=== PATIENT | female | born 1945 | race Caucasian/White ===

== ENCOUNTER → 2017-02-19 | Day surgery (SDC) | payer MEDICARE, BC ==
[2017-02-18 12:26] LABS: BASOPHILS # (AUTO) 0.1 (0.0-0.1); BASOPHILS % 0.9 % (0.0-1.0); EOSINOPHILS # (AUTO) 0.3 (0.0-0.4); EOSINOPHILS % 3.3 % (0.0-6.0); HEMOGLOBIN 12.5 g/dL (12.0-16.0); LYMPHOCYTES # (AUTO) 2.8 (1.0-3.2); LYMPHOCYTES % 34.7 % (18.0-39.1); MEAN CORPUSCULAR HEMOGLOBIN 29.2 pg (28-32); MEAN CORPUSCULAR HGB CONC 32.9 g/dL (31-35); MEAN CORPUSCULAR VOLUME 88.8 fL (81-99); MONOCYTES # (AUTO) 0.9 (0.2-0.8); MONOCYTES % 11.5 % (4.4-11.3); NEUTROPHILS % 49.1 % (38.7-80.0); PLATELET COUNT 315 x10e3/uL (140-360); RED BLOOD COUNT 4.28 x10e6/uL (3.6-5.1); RED CELL DISTRIBUTION WIDTH 15.4 % (11.7-14.4)
[~2017-02-19] MED LIST: ENALAPRIL PO; FENTANYL CITRATE/PF 100MCG/2 ML INJ ONE; METOPROLOL SUCC25 MG PO; METOPROLOL SUCC50 MG PO; MIDAZOLAM HCL 2 MG/2 ML VIAL ONE; PANTOPRAZOLE SO40 MG PO; PROPOFOL IV EMULSION 10 MG/ML 50 ML VIAL ONE; PROTONIX PO; SIMVASTATIN PO; SIMVASTATIN20 MG PO; TRIAMTERENE-HC1 EAC2 PO; VASOTEC10 MG PO
--- NOTE | 2017-02-19 11:03 | Operative Report ---
DATE OF PROCEDURE: February 19, 2017 REFERRING PHYSICIAN: Dr. Christine Dang PROCEDURE PERFORMED: Esophagogastroduodenoscopy with biopsies. INDICATIONS FOR EGD: Recurrent nausea, vomiting and bloating. MEDICATION: Patient was done under MAC. Please see anesthesiologist's note. PROCEDURE: With the patient in the left lateral decubitus position, the flexible fiberoptic Olympus gastroscope was introduced into the esophagus under direct visualization without any difficulty. There were some erosions noted in the distal esophagus. There was no active bleeding. The scope was then advanced with ease into the stomach traversing a moderate size hiatal hernia. Mucosa overlying the antrum and the body revealed some patchy erythema and mild to moderate edema. Biopsies were obtained and sent to stain for H. pylori. Gastric polyps, hyperplastic appearing, noted in the body and somewhat partially excised with the cold biopsy forceps. Pylorus appeared to be of normal contour and shape. It was intubated with ease. The scope was advanced all the way to the 2nd portion of the duodenum. The scope was then withdrawn slowly. Mucosa overlying the proximal 2nd portion and the duodenal bulb revealed some patchy areas of erythema. The scope was then withdrawn back into the stomach and retroflexed. The mucosa overlying the fundus appeared to be within normal limits. The previously described hiatal hernia was also noted in the retroflexed position. The scope was then straightened out. The stomach was decompressed. The scope was subsequently withdrawn. Patient tolerated the procedure well. IMPRESSION 1. Distal esophagitis, erosive. 2. Moderate size hiatal hernia. 3. Gastritis, biopsied. Biopsies sent to stain for Helicobacter pylori. 4. Gastric polyps, body, some partially excised with cold biopsy forceps. 5. Duodenitis, mild. PLAN: Follow up histology. Increase Protonix to 40 mg 1 p.o. a.c. b.i.d. Add Reglan 10 mg 1 p.o. a.c. t.i.d. and at bedtime. Job#: [id number] RI cc:CHRISTINE DANG MD
== END | disposition home or self-care (01) ==
LOC: OR 07:23
PROVIDERS: ATTEND Internal Medicine Gastroenterology
DX: K29.60 Other gastritis without bleeding (principal); K31.7 Polyp of stomach and duodenum; K29.80 Duodenitis without bleeding; K20.9 Esophagitis, unspecified; K44.9 Diaphragmatic hernia without obstruction or gangrene; I10 Essential (primary) hypertension; R00.1 Bradycardia, unspecified; Z01.810 Encounter for preprocedural cardiovascular examination; Z01.812 Encounter for preprocedural laboratory examination; Z68.33 Body mass index [BMI] 33.0-33.9, adult; Z80.0 Family history of malignant neoplasm of digestive organs
CPT/HCPCS: 36415; 43239; 85025; 88305; 88312; 93005; J2250

== ENCOUNTER → 2019-01-28 | Outpatient (CLI) | payer MEDICARE, BC ==
[~2019-01-28] MED LIST changes: -FENTANYL CITRATE/PF 100MCG/2 ML INJ ONE; +GADOBENATE DIMEGLUMINE 1 ML IV ONE; +GLYCOPYRROLATE1 MG PO; +LOSARTAN POTASS25 MG PO; +METFORMIN HCL500 MG PO; -MIDAZOLAM HCL 2 MG/2 ML VIAL ONE; -PROPOFOL IV EMULSION 10 MG/ML 50 ML VIAL ONE; +SODIUM CHLORIDE 0.9% 50ML 50 ML ONE
[2019-01-28 10:39] LABS: CREATININE, SERUM 1.02 mg/dL (0.57-1.11)
--- NOTE | 2019-01-29 14:54 | Diagnostic Imaging Report ---
TECHNIQUE: MRI of the abdomen WITHOUT and WITH intravenous contrast. INDICATION: 73-year-old woman with right liver lesion. COMPARISON: None. FINDINGS: LOWER THORAX: Unremarkable. LIVER: Decreased signal intensity of the liver on opposed phase imaging, consistent with hepatic steatosis. 0.7 cm and 0.4 cm cysts in segment II. BILIARY: Prior cholecystectomy. No biliary ductal dilatation or filling defect. SPLEEN: No splenomegaly. PANCREAS: No focal masses or ductal dilatation. ADRENALS: No adrenal nodules. KIDNEYS/URETERS: No hydronephrosis or solid mass lesions. Bilateral renal cysts measure up to 1 cm on the right and up to 1.1 x 1 cm on the left. PERITONEUM/RETROPERITONEUM: No free fluid. LYMPH NODES: No lymphadenopathy. VESSELS: Unremarkable. GI TRACT: No distention or wall thickening. Small hiatal hernia. BONES AND SOFT TISSUES: Degenerative changes of the visualized spine. Bilateral breast prostheses. IMPRESSION: Hepatic steatosis. Subcentimeter cysts in the left liver. Bilateral renal cysts. Signed by: Luara Nair MD on 01/29/2019 2:51 PM
== END ==
LOC: MRI 09:34
PROVIDERS: ATTEND Internal Medicine Gastroenterology
DX: K76.9 Liver disease, unspecified (principal)
CPT/HCPCS: 36415; 74183; 82565; 84520; A9577

== ENCOUNTER → 2020-04-21 | Outpatient (CLI) | payer MEDICARE, BC ==
[~2020-04-21] MED LIST changes: -GADOBENATE DIMEGLUMINE 1 ML IV ONE; -SODIUM CHLORIDE 0.9% 50ML 50 ML ONE
== END ==
LOC: DX 10:55
PROVIDERS: ATTEND Surgery
DX: Z01.812 Encounter for preprocedural laboratory examination (principal); Z20.822 Contact with and (suspected) exposure to COVID-19; K21.9 Gastro-esophageal reflux disease without esophagitis; K44.9 Diaphragmatic hernia without obstruction or gangrene
CPT/HCPCS: 74246; U0002

== ENCOUNTER → 2020-09-06 | Outpatient (CLI) | payer MEDICARE, BC ==
[~2020-09-06] MED LIST changes: +CEFDINIR300 MG PO; +ELLIPTA; +FLAGYL500 MG PO; +LEVOTHYROXINE50 MCG PO; +TRILOGY
== END ==
LOC: RAD 10:41
PROVIDERS: ATTEND Internal Medicine Gastroenterology
DX: K59.09 Other constipation (principal)
CPT/HCPCS: 74018

== ENCOUNTER 2020-09-08 12:17 | Inpatient (IN) | payer MEDICARE, BC ==
[2020-09-07 14:19] LABS: BASOPHILS # (AUTO) 0.1 (0.0-0.1); BASOPHILS % 0.6 % (0.0-1.0); EOSINOPHILS % 0.2 % (0.0-6.0); HEMATOCRIT 36.1 % (34.2-44.1); HEMOGLOBIN 11.4 g/dL (12.0-16.0); LYMPHOCYTES # (AUTO) 3.3 (1.0-3.2); LYMPHOCYTES % 23.1 % (18.0-39.1); MEAN CORPUSCULAR HEMOGLOBIN 27.9 pg (28-32); MEAN CORPUSCULAR HGB CONC 31.6 g/dL (31-35); MEAN CORPUSCULAR VOLUME 88.3 fL (81-99); MONOCYTES # (AUTO) 1.4 (0.2-0.8); MONOCYTES % 9.6 % (4.4-11.3); NEUTROPHILS # (AUTO) 9.3 (2.1-6.9); NEUTROPHILS % 65.9 % (38.7-80.0); PLATELET COUNT 526 x10e3/uL (140-360); RED BLOOD COUNT 4.09 x10e6/uL (3.6-5.1); RED CELL DISTRIBUTION WIDTH 15.8 % (11.7-14.4)
[~2020-09-08] VITALS: Ht 157.5 cm; Wt 87.1 kg
[~2020-09-08 12:17] MED LIST changes: -CEFDINIR300 MG PO; -FLAGYL500 MG PO
[2020-09-08] MEDS ORDERED: POVIDONE IODINE 0.05% 0.05 % ML PO ONE (12:54)
[2020-09-08] MEDS ORDERED: PROPOFOL IV EMULSION 10 MG/ML 20 ML VIAL ONE (12:54)
[2020-09-08] MEDS ORDERED: METRONIDAZOLE 500MG/NS 100ML 0 ML IV ONE (17:08)
[2020-09-08] MEDS ORDERED: DIATRIZOATE MEGL/DIATRIZOA SOD 30 ML BTL PO ONE (17:42)
[2020-09-08] MEDS ORDERED: ONDANSETRON HCL INJ 2MG/ML 2ML 2 MG/ML VIAL ONE (19:33)
[2020-09-08] MEDS ORDERED: SODIUM CHLORIDE 0.9% 50ML 50 ML ONE (19:36)
[2020-09-08] MEDS ORDERED: IOPAMIDOL 370 MG/ML 200 ML INFUS..BTL INJ ONE (19:37)
[2020-09-08 20:19] VITALS: BP 121/62
[2020-09-08] MEDS: LACTATED RINGER'S 1,000 ML INJ SCH (21:43)
[2020-09-08] MEDS: ERTAPENEM 1 GM in SODIUM CHLORIDE 0.9% 50ML 50 ML IV SCH (21:43)
[2020-09-08 22:34] VITALS: BP 121/62
[2020-09-08 23:51] VITALS: BP 129/56
[2020-09-09] VITALS (7 sets, daily range): BP systolic 113–163; BP diastolic 55–93
[2020-09-09] MEDS ORDERED: PIPERACILLIN/TAZOBACTAM 3.375 GM in SODIUM CHLORIDE 0.9% 50ML 50 ML IV SCH ×2
[2020-09-09] MEDS ORDERED: MEROPENEM 1 GM in SODIUM CHLORIDE 0.9% 100 ML IV STA (00:52)
[2020-09-09] MEDS ORDERED: MEROPENEM 1 GM in SODIUM CHLORIDE 0.9% 100 ML IV SCH (06:00)
[2020-09-09] MEDS: METRONIDAZOLE 500MG/NS 100ML 100 ML IV SCH ×3 (06:53→17:01)
[2020-09-09] MEDS: LACTATED RINGER'S 1,000 ML INJ SCH ×2 (06:53→17:01)
[2020-09-09] MEDS ORDERED: HYDRALAZINE HCL 20 MG/ML VIAL IV PRN (20:30)
[2020-09-09] MEDS: ERTAPENEM 1 GM in SODIUM CHLORIDE 0.9% 50ML 50 ML IV SCH (20:54)
[2020-09-09] MEDS: DEXTROSE 5%/0.45% SOD CHL 1,000 ML IV SCH (20:54)
[2020-09-10] VITALS (8 sets, daily range): BP systolic 130–151; BP diastolic 55–81
[2020-09-10] MEDS: METRONIDAZOLE 500MG/NS 100ML 100 ML IV SCH ×5 (00:06→17:46)
[2020-09-10] MEDS: DEXTROSE 5%/0.45% SOD CHL 1,000 ML IV SCH (05:18)
[2020-09-10 06:23] LABS: BASOPHILS # (AUTO) 0.1 (0.0-0.1); BASOPHILS % 0.8 % (0.0-1.0); EOSINOPHILS # (AUTO) 0.1 (0.0-0.4); EOSINOPHILS % 1.1 % (0.0-6.0); HEMATOCRIT 31.3 % (34.2-44.1); HEMOGLOBIN 10.1 g/dL (12.0-16.0); LYMPHOCYTES # (AUTO) 1.7 (1.0-3.2); LYMPHOCYTES % 26.8 % (18.0-39.1); MEAN CORPUSCULAR HEMOGLOBIN 28.2 pg (28-32); MEAN CORPUSCULAR HGB CONC 32.3 g/dL (31-35); MEAN CORPUSCULAR VOLUME 87.4 fL (81-99); MONOCYTES # (AUTO) 0.7 (0.2-0.8); MONOCYTES % 10.6 % (4.4-11.3); NEUTROPHILS # (AUTO) 3.9 (2.1-6.9); NEUTROPHILS % 60.1 % (38.7-80.0); PLATELET COUNT 512 x10e3/uL (140-360); RED BLOOD COUNT 3.58 x10e6/uL (3.6-5.1); RED CELL DISTRIBUTION WIDTH 15.4 % (11.7-14.4)
[2020-09-10 06:47] LABS: ALBUMIN 2.6 g/dL (3.5-5.0); ALBUMIN/GLOBULIN RATIO 0.7 (0.8-2.0); ANION GAP 16.4 mmol/L (8-16); CALCIUM 8.2 mg/dL (8.4-10.2); CREATININE, SERUM 0.72 mg/dL (0.57-1.11); POTASSIUM 3.4 mmol/L (3.5-5.1)
[2020-09-10] MEDS: LEVOTHYROXINE SODIUM 50 MCG TAB PO SCH (11:26)
[2020-09-10] MEDS ORDERED: DEXTROSE 50% SYRINGE 50 ML IV PRN (16:15)
[2020-09-10] MEDS: INSULIN REGULAR, HUMAN 100 UNIT/1 ML SQ SCH ×2 (16:30→20:24)
[2020-09-10] MEDS: SODIUM CHLORIDE 0.9% 1000ML 1,000 ML IV SCH (17:15)
[2020-09-10] MEDS ORDERED: SODIUM CHLORIDE 0.9% 1000ML 1,000 ML ONE (17:18)
[2020-09-10] MEDS: ERTAPENEM 1 GM in SODIUM CHLORIDE 0.9% 50ML 50 ML IV SCH (20:42)
[2020-09-10 23:36] LABS: % IRON SATURATION 7 % (15-50); IRON 19 ug/dL (50-170); TOTAL IRON BINDING CAPACITY 265 ug/dL (261-478); TRANSFERRIN 189 mg/dL (180-382)
[2020-09-11] VITALS (7 sets, daily range): BP systolic 139–181; BP diastolic 69–87
[2020-09-11] MEDS: METRONIDAZOLE 500MG/NS 100ML 100 ML IV SCH ×4 (00:15→19:43)
[2020-09-11 05:18] LABS: ANION GAP 15.3 mmol/L (8-16); CALCIUM 8.2 mg/dL (8.4-10.2); CREATININE, SERUM 0.64 mg/dL (0.57-1.11); POTASSIUM 3.3 mmol/L (3.5-5.1)
[2020-09-11] MEDS: SODIUM CHLORIDE 0.9% 1000ML 1,000 ML IV SCH ×3 (05:43→18:50)
[2020-09-11] MEDS: LEVOTHYROXINE SODIUM 50 MCG TAB PO SCH (05:44)
[2020-09-11] MEDS: INSULIN REGULAR, HUMAN 100 UNIT/1 ML SQ SCH ×4 (07:13→22:32)
[2020-09-11] MEDS: METFORMIN HCL 500 MG TAB PO SCH (09:00)
[2020-09-11] MEDS: ERTAPENEM 1 GM in SODIUM CHLORIDE 0.9% 50ML 50 ML IV SCH (22:26)
[2020-09-12] VITALS (7 sets, daily range): BP systolic 139–164; BP diastolic 64–77
[2020-09-12] MEDS: METRONIDAZOLE 500MG/NS 100ML 100 ML IV SCH ×3 (01:40→12:12)
[2020-09-12 05:15] LABS: BASOPHILS % 0.7 % (0.0-1.0); EOSINOPHILS % 0.6 % (0.0-6.0); HEMATOCRIT 31.9 % (34.2-44.1); HEMOGLOBIN 10.2 g/dL (12.0-16.0); LYMPHOCYTES % 36.1 % (18.0-39.1); MEAN CORPUSCULAR HEMOGLOBIN 27.5 pg (28-32); MONOCYTES # (AUTO) 0.7 (0.2-0.8); MONOCYTES % 13.3 % (4.4-11.3); NEUTROPHILS # (AUTO) 2.7 (2.1-6.9); NEUTROPHILS % 48.7 % (38.7-80.0); PLATELET COUNT 519 x10e3/uL (140-360); RED BLOOD COUNT 3.71 x10e6/uL (3.6-5.1); RED CELL DISTRIBUTION WIDTH 15.4 % (11.7-14.4)
[2020-09-12] MEDS: LEVOTHYROXINE SODIUM 50 MCG TAB PO SCH (06:11)
[2020-09-12 06:55] LABS: EOSINOPHILS % (MANUAL) 1 % (0-7); LYMPHOCYTES % (MANUAL) 26 % (19-48); MONOCYTES % (MANUAL) 8 % (3.4-9.0); NEUTROPHILS % (MANUAL) 64 % (40-74)
[2020-09-12 06:56] LABS: PLATELET ESTIMATE ADEQUATE; PLATELET MORPHOLOGY COMMENT NORMAL; RBC MORPHOLOGY COMMENT NORMAL
[2020-09-12] MEDS: SODIUM CHLORIDE 0.9% 1000ML 1,000 ML IV SCH (07:01)
[2020-09-12] MEDS: INSULIN REGULAR, HUMAN 100 UNIT/1 ML SQ SCH ×3 (07:30→16:30)
[2020-09-12] MEDS ORDERED: IRON SUCROSE 100 MG in SODIUM CHLORIDE 0.9% 100 ML 100 ML IV SCH (09:00)
[2020-09-12] MEDS: METFORMIN HCL 500 MG TAB PO SCH (09:34)
[2020-09-12] MEDS ORDERED: CEFDINIR300 MG PO (19:23)
[2020-09-12] MEDS ORDERED: FLAGYL500 MG PO (19:24)
== END 2020-09-12 20:00 | disposition home or self-care (01) | DRG 392 ==
LOC: OR 12:17 → MED/SURG 20:04 → OR 20:07 → UNDOADMOB 09-09 11:24 → MED/SURG 09-09 11:24 → OR 09-09 11:24 → OBSVTOIN 09-09 11:24 → INTOOBSV 09-09 11:24 → UNDODISIN 09-12 20:00
PROVIDERS: ADMIT Family Medicine; ATTEND Family Medicine
PROC: 0DJD8ZZ Inspection of Lower Intestinal Tract, Via Natural or Artificial Opening Endoscopic (ICD-10-PCS; principal; 2020-09-08 14:00)
DX: K57.20 Diverticulitis of large intestine with perforation and abscess without bleeding (principal); N82.3 Fistula of vagina to large intestine; R19.4 Change in bowel habit; Z86.010 Personal history of colon polyps; Z80.0 Family history of malignant neoplasm of digestive organs; K64.8 Other hemorrhoids; E66.01 Morbid (severe) obesity due to excess calories; Z68.35 Body mass index [BMI] 35.0-35.9, adult; E03.9 Hypothyroidism, unspecified; E78.5 Hyperlipidemia, unspecified; K20.90 Esophagitis, unspecified without bleeding; Z20.822 Contact with and (suspected) exposure to COVID-19
CPT/HCPCS: 36415; 45378; 74177; 80048; 80053; 82607; 82746; 82948; 83540; 84466; 85025; 85045; 96361; 96372; J1335; J1756; J1817; J2405; J7030; J7121; Q9967; U0002

== ENCOUNTER 2020-10-14 09:09 | Emergency (ER) | payer MEDICARE, BC ==
[~2020-10-14] VITALS: Ht 157.5 cm; Wt 86.6 kg
[~2020-10-14 09:09] MED LIST changes: +CEFDINIR300 MG PO; +FLAGYL500 MG PO
[2020-10-14] MEDS ORDERED: DOXYCYCLINE HY100 MG PO (10:34)
== END 2020-10-14 10:48 | disposition home or self-care (01) ==
LOC: FSED 09:15
DX: J02.0 Streptococcal pharyngitis (principal); J18.9 Pneumonia, unspecified organism
CPT/HCPCS: 71045; 83518; 99283

== ENCOUNTER → 2020-10-23 | Outpatient (CLI) | payer MEDICARE, BC ==
[~2020-10-23] MED LIST changes: +DOXYCYCLINE HY100 MG PO
== END ==
LOC: DX 08:32
PROVIDERS: ATTEND Surgery
DX: K57.92 Diverticulitis of intestine, part unspecified, without perforation or abscess without bleeding (principal); N82.8 Other female genital tract fistulae
CPT/HCPCS: 74280

== ENCOUNTER 2020-11-27 07:33 | Inpatient (IN) | payer MEDICARE, BC ==
[2020-11-23 14:19] LABS: BASOPHILS # (AUTO) 0.1 (0.0-0.1); BASOPHILS % 0.8 % (0.0-1.0); EOSINOPHILS # (AUTO) 0.1 (0.0-0.4); EOSINOPHILS % 1.1 % (0.0-6.0); HEMATOCRIT 39.9 % (34.2-44.1); HEMOGLOBIN 12.5 g/dL (12.0-16.0); LYMPHOCYTES # (AUTO) 3.2 (1.0-3.2); LYMPHOCYTES % 28.8 % (18.0-39.1); MEAN CORPUSCULAR HEMOGLOBIN 29.1 pg (28-32); MEAN CORPUSCULAR HGB CONC 31.3 g/dL (31-35); MEAN CORPUSCULAR VOLUME 92.8 fL (81-99); MONOCYTES # (AUTO) 1.1 (0.2-0.8); NEUTROPHILS # (AUTO) 6.5 (2.1-6.9); NEUTROPHILS % 58.8 % (38.7-80.0); PLATELET COUNT 366 x10e3/uL (140-360); RED CELL DISTRIBUTION WIDTH 17.2 % (11.7-14.4)
[2020-11-23 14:40] LABS: ALBUMIN 3.7 g/dL (3.5-5.0); ANION GAP 17.2 mmol/L (8-16); CREATININE, SERUM 0.84 mg/dL (0.57-1.11); POTASSIUM 4.2 mmol/L (3.5-5.1)
[~2020-11-27] VITALS: Ht 157.5 cm; Wt 86.6 kg
[~2020-11-27 07:33] MED LIST changes: +ERYTHROMYCIN PO; +NEOMYCIN
[2020-11-27] MEDS ORDERED: SODIUM CHLORIDE 0.9% INJ 50 ML BAG ONE (11:00)
[2020-11-27] MEDS ORDERED: ERTAPENEM 1 GM VIAL ONE (11:00)
[2020-11-27] MEDS ORDERED: HYDROMORPHONE 1MG/1ML INJ IV PRN (14:15)
[2020-11-27 16:15] VITALS: BP 160/89
[2020-11-27] MEDS ORDERED: FENTANYL CITRATE/PF 100MCG/2 ML INJ ONE (16:16)
[2020-11-27 16:22] VITALS: BP 160/89
[2020-11-27 16:23] VITALS: BP 160/89
[2020-11-27] MEDS: SODIUM CHLORIDE 0.9% 1000ML 1,000 ML IV SCH (16:24)
[2020-11-27] MEDS: SODIUM CHLORIDE 0.9% 250ML IRRIG IR SCH ×3 (16:24→22:15)
[2020-11-27] MEDS: INSULIN REGULAR, HUMAN 100 UNIT/1 ML SQ SCH (17:03)
[2020-11-27] MEDS: NITROGLYCERIN 2% OINT 1 GM PKT TOP SCH (17:42)
[2020-11-27] MEDS: HYDROMORPHONE 1MG/1ML INJ IV PRN ×2 (18:53→21:07)
[2020-11-27] MEDS ORDERED: METOPROLOL TARTRATE INJ 1 MG/ML VIAL IV PRN (19:30)
[2020-11-27] MEDS ORDERED: HYDRALAZINE HCL 20 MG/ML VIAL IV PRN (19:30)
[2020-11-27 20:00] VITALS: BP 127/76
[2020-11-27 22:15] VITALS: BP 127/76
[2020-11-28] VITALS (8 sets, daily range): BP systolic 108–131; BP diastolic 61–82
[2020-11-28] MEDS: SODIUM CHLORIDE 0.9% 250ML IRRIG IR SCH ×6 (00:34→22:07)
[2020-11-28] MEDS: SODIUM CHLORIDE 0.9% 1000ML 1,000 ML IV SCH ×3 (00:34→20:24)
[2020-11-28] MEDS: HYDROMORPHONE 1MG/1ML INJ IV PRN ×3 (00:53→19:40)
[2020-11-28 05:47] LABS: BASOPHILS % 0.1 % (0.0-1.0); HEMATOCRIT 33.8 % (34.2-44.1); LYMPHOCYTES # (AUTO) 1.3 (1.0-3.2); LYMPHOCYTES % 13.5 % (18.0-39.1); MEAN CORPUSCULAR HEMOGLOBIN 29.3 pg (28-32); MEAN CORPUSCULAR HGB CONC 32.5 g/dL (31-35); MEAN CORPUSCULAR VOLUME 90.1 fL (81-99); MONOCYTES # (AUTO) 0.9 (0.2-0.8); MONOCYTES % 9.4 % (4.4-11.3); NEUTROPHILS # (AUTO) 7.3 (2.1-6.9); NEUTROPHILS % 76.5 % (38.7-80.0); PLATELET COUNT 416 x10e3/uL (140-360); RED BLOOD COUNT 3.75 x10e6/uL (3.6-5.1); RED CELL DISTRIBUTION WIDTH 16.9 % (11.7-14.4)
[2020-11-28] MEDS: INSULIN REGULAR, HUMAN 100 UNIT/1 ML SQ SCH ×5 (06:00→23:50)
[2020-11-28 06:26] LABS: ANION GAP 16.4 mmol/L (8-16); CALCIUM 7.7 mg/dL (8.4-10.2); CREATININE, SERUM 0.95 mg/dL (0.57-1.11); POTASSIUM 4.4 mmol/L (3.5-5.1)
[2020-11-28] MEDS: NITROGLYCERIN 2% OINT 1 GM PKT TOP SCH ×4 (06:32→16:55)
[2020-11-28] MEDS: METOPROLOL SUCCINATE 25 MG TAB XL PO SCH (07:53)
[2020-11-28] MEDS: ONDANSETRON HCL INJ 2MG/ML 2ML 2 MG/ML VIAL IV PRN ×2 (07:53→19:33)
[2020-11-28] MEDS: ERTAPENEM 1 GM in SODIUM CHLORIDE 0.9% 100 ML IV SCH (09:43)
[2020-11-29] VITALS (9 sets, daily range): BP systolic 121–158; BP diastolic 54–72
[2020-11-29] MEDS: NITROGLYCERIN 2% OINT 1 GM PKT TOP SCH ×4 (00:15→18:00)
[2020-11-29] MEDS: ONDANSETRON HCL INJ 2MG/ML 2ML 2 MG/ML VIAL IV PRN ×2 (00:53→16:09)
[2020-11-29] MEDS: HYDROMORPHONE 1MG/1ML INJ IV PRN ×6 (00:59→21:35)
[2020-11-29] MEDS: SODIUM CHLORIDE 0.9% 250ML IRRIG IR SCH ×6 (02:15→22:05)
[2020-11-29] MEDS: INSULIN REGULAR, HUMAN 100 UNIT/1 ML SQ SCH ×3 (05:46→18:00)
[2020-11-29] MEDS: SODIUM CHLORIDE 0.9% 1000ML 1,000 ML IV SCH ×2 (06:02→18:21)
[2020-11-29] MEDS: METOPROLOL SUCCINATE 25 MG TAB XL PO SCH (07:46)
[2020-11-29 10:05] LABS: BASOPHILS % 0.4 % (0.0-1.0); EOSINOPHILS % 0.2 % (0.0-6.0); HEMATOCRIT 34.7 % (34.2-44.1); HEMOGLOBIN 10.5 g/dL (12.0-16.0); LYMPHOCYTES # (AUTO) 2.2 (1.0-3.2); LYMPHOCYTES % 24.8 % (18.0-39.1); MEAN CORPUSCULAR HEMOGLOBIN 29.6 pg (28-32); MEAN CORPUSCULAR HGB CONC 30.3 g/dL (31-35); MEAN CORPUSCULAR VOLUME 97.7 fL (81-99); MONOCYTES % 11.6 % (4.4-11.3); NEUTROPHILS # (AUTO) 5.6 (2.1-6.9); NEUTROPHILS % 62.4 % (38.7-80.0); PLATELET COUNT 294 x10e3/uL (140-360); RED BLOOD COUNT 3.55 x10e6/uL (3.6-5.1); RED CELL DISTRIBUTION WIDTH 17.6 % (11.7-14.4)
[2020-11-29 10:33] LABS: ANION GAP 12.1 mmol/L (8-16); CALCIUM 7.7 mg/dL (8.4-10.2); CREATININE, SERUM 0.71 mg/dL (0.57-1.11); POTASSIUM 4.1 mmol/L (3.5-5.1)
[2020-11-29] MEDS: ERTAPENEM 1 GM in SODIUM CHLORIDE 0.9% 100 ML IV SCH (10:53)
[2020-11-29] MEDS: BISACODYL 10 MG SUPP PR SCH (20:48)
[2020-11-30] VITALS (9 sets, daily range): BP systolic 137–169; BP diastolic 60–73
[2020-11-30] MEDS: HYDROMORPHONE 1MG/1ML INJ IV PRN ×7 (00:06→23:15)
[2020-11-30] MEDS: NITROGLYCERIN 2% OINT 1 GM PKT TOP SCH ×4 (00:44→17:39)
[2020-11-30] MEDS: SODIUM CHLORIDE 0.9% 250ML IRRIG IR SCH ×6 (02:18→22:03)
[2020-11-30] MEDS: SODIUM CHLORIDE 0.9% 1000ML 1,000 ML IV SCH ×2 (05:18→11:37)
[2020-11-30] MEDS: INSULIN REGULAR, HUMAN 100 UNIT/1 ML SQ SCH ×4 (06:00→17:28)
[2020-11-30] MEDS ORDERED: SODIUM CHLORIDE 0.9% 100 ML ONE (08:13)
[2020-11-30] MEDS: BISACODYL 10 MG SUPP PR SCH (08:23)
[2020-11-30] MEDS: ERTAPENEM 1 GM in SODIUM CHLORIDE 0.9% 100 ML IV SCH (08:23)
[2020-11-30] MEDS: METOPROLOL SUCCINATE 25 MG TAB XL PO SCH (08:24)
[2020-11-30 09:04] LABS: BASOPHILS # (AUTO) 0.1 (0.0-0.1); BASOPHILS % 0.5 % (0.0-1.0); EOSINOPHILS # (AUTO) 0.1 (0.0-0.4); HEMATOCRIT 33.3 % (34.2-44.1); HEMOGLOBIN 10.3 g/dL (12.0-16.0); LYMPHOCYTES # (AUTO) 2.6 (1.0-3.2); LYMPHOCYTES % 22.6 % (18.0-39.1); MEAN CORPUSCULAR HEMOGLOBIN 29.1 pg (28-32); MEAN CORPUSCULAR HGB CONC 30.9 g/dL (31-35); MEAN CORPUSCULAR VOLUME 94.1 fL (81-99); MONOCYTES # (AUTO) 1.1 (0.2-0.8); MONOCYTES % 9.3 % (4.4-11.3); NEUTROPHILS # (AUTO) 7.5 (2.1-6.9); NEUTROPHILS % 66.1 % (38.7-80.0); PLATELET COUNT 375 x10e3/uL (140-360); RED BLOOD COUNT 3.54 x10e6/uL (3.6-5.1); RED CELL DISTRIBUTION WIDTH 17.3 % (11.7-14.4)
[2020-11-30 09:25] LABS: ANION GAP 16.7 mmol/L (8-16); CALCIUM 8.3 mg/dL (8.4-10.2); CREATININE, SERUM 0.7 mg/dL (0.57-1.11); POTASSIUM 3.7 mmol/L (3.5-5.1)
[2020-12-01] VITALS (8 sets, daily range): BP systolic 126–178; BP diastolic 62–77
[2020-12-01] MEDS: SODIUM CHLORIDE 0.9% 1000ML 1,000 ML IV SCH ×2 (01:31→08:15)
[2020-12-01] MEDS: NITROGLYCERIN 2% OINT 1 GM PKT TOP SCH ×4 (01:33→17:52)
[2020-12-01] MEDS: SODIUM CHLORIDE 0.9% 250ML IRRIG IR SCH ×3 (02:15→10:15)
[2020-12-01] MEDS: HYDROMORPHONE 1MG/1ML INJ IV PRN ×6 (03:49→21:21)
[2020-12-01 05:26] LABS: BASOPHILS # (AUTO) 0.1 (0.0-0.1); BASOPHILS % 0.6 % (0.0-1.0); EOSINOPHILS # (AUTO) 0.2 (0.0-0.4); EOSINOPHILS % 2.9 % (0.0-6.0); HEMATOCRIT 28.9 % (34.2-44.1); HEMOGLOBIN 9.2 g/dL (12.0-16.0); LYMPHOCYTES # (AUTO) 2.2 (1.0-3.2); LYMPHOCYTES % 26.3 % (18.0-39.1); MEAN CORPUSCULAR HEMOGLOBIN 29.6 pg (28-32); MEAN CORPUSCULAR HGB CONC 31.8 g/dL (31-35); MEAN CORPUSCULAR VOLUME 92.9 fL (81-99); MONOCYTES # (AUTO) 0.8 (0.2-0.8); MONOCYTES % 9.4 % (4.4-11.3); NEUTROPHILS % 60.6 % (38.7-80.0); PLATELET COUNT 338 x10e3/uL (140-360); RED BLOOD COUNT 3.11 x10e6/uL (3.6-5.1); RED CELL DISTRIBUTION WIDTH 17.1 % (11.7-14.4)
[2020-12-01 06:00] LABS: ANION GAP 14.6 mmol/L (8-16); CALCIUM 7.8 mg/dL (8.4-10.2); CREATININE, SERUM 0.63 mg/dL (0.57-1.11); POTASSIUM 3.6 mmol/L (3.5-5.1)
[2020-12-01] MEDS: INSULIN REGULAR, HUMAN 100 UNIT/1 ML SQ SCH ×4 (06:00→18:00)
[2020-12-01] MEDS: METOPROLOL SUCCINATE 25 MG TAB XL PO SCH ×2 (09:00→16:52)
[2020-12-01] MEDS ORDERED: BISACODYL 10 MG SUPP PR ONE (09:15)
[2020-12-01] MEDS: ERTAPENEM 1 GM in SODIUM CHLORIDE 0.9% 100 ML IV SCH (09:59)
[2020-12-01] MEDS: DEXTROSE 5%/0.45% SOD CHL 1,000 ML IV SCH (12:57)
[2020-12-01] MEDS: BISACODYL 10 MG SUPP PR SCH (20:22)
[2020-12-02] VITALS (8 sets, daily range): BP systolic 122–170; BP diastolic 64–80
[2020-12-02] MEDS: NITROGLYCERIN 2% OINT 1 GM PKT TOP SCH ×5 (00:26→23:51)
[2020-12-02] MEDS: HYDROCODONE/APAP 5MG-325MG TAB PO PRN ×3 (00:26→21:37)
[2020-12-02] MEDS: HYDROMORPHONE 1MG/1ML INJ IV PRN ×3 (04:26→15:45)
[2020-12-02] MEDS: INSULIN REGULAR, HUMAN 100 UNIT/1 ML SQ SCH ×5 (06:00→21:08)
[2020-12-02] MEDS: DEXTROSE 5%/0.45% SOD CHL 1,000 ML IV SCH (06:30)
[2020-12-02] MEDS ORDERED: LEVOTHYROXINE SODIUM 50 MCG TAB PO SCH (07:30)
[2020-12-02] MEDS: BISACODYL 10 MG SUPP PR SCH (08:00)
[2020-12-02] MEDS ORDERED: SIMVASTATIN 20 MG TAB PO SCH (09:00)
[2020-12-02] MEDS: LOSARTAN POTASSIUM 25 MG TAB PO SCH (09:00)
[2020-12-02] MEDS: METOPROLOL SUCCINATE 25 MG TAB XL PO SCH (09:00)
[2020-12-02] MEDS ORDERED: PANTOPRAZOLE SOD 40 MG TABEC PO SCH (09:00)
[2020-12-02] MEDS: ERTAPENEM 1 GM in SODIUM CHLORIDE 0.9% 100 ML IV SCH ×2 (10:00→12:35)
[2020-12-02] MEDS: SIMVASTATIN 20 MG TAB PO SCH (21:00)
[2020-12-03] VITALS (8 sets, daily range): BP systolic 135–160; BP diastolic 61–75
[2020-12-03] MEDS: DEXTROSE 5%/0.45% SOD CHL 1,000 ML IV SCH (02:30)
[2020-12-03] MEDS: NITROGLYCERIN 2% OINT 1 GM PKT TOP SCH ×2 (05:37→12:00)
[2020-12-03] MEDS: LEVOTHYROXINE SODIUM 50 MCG TAB PO SCH (05:37)
[2020-12-03] MEDS: INSULIN REGULAR, HUMAN 100 UNIT/1 ML SQ SCH ×4 (05:38→20:57)
[2020-12-03] MEDS: LOSARTAN POTASSIUM 25 MG TAB PO SCH (09:00)
[2020-12-03] MEDS: METOPROLOL SUCCINATE 25 MG TAB XL PO SCH (09:00)
[2020-12-03] MEDS: HYDROCODONE/APAP 5MG-325MG TAB PO PRN ×5 (09:04→22:10)
[2020-12-03] MEDS: ERTAPENEM 1 GM in SODIUM CHLORIDE 0.9% 100 ML IV SCH ×2 (10:00→12:45)
[2020-12-03] MEDS: SIMVASTATIN 20 MG TAB PO SCH (21:21)
[2020-12-04 00:13] VITALS: BP 151/67
[2020-12-04] MEDS: HYDROCODONE/APAP 5MG-325MG TAB PO PRN ×3 (03:28→12:49)
[2020-12-04 04:47] VITALS: BP_SYST 128; BP_SYST 175; BP_DIAS 49; BP_DIAS 77
[2020-12-04] MEDS: LEVOTHYROXINE SODIUM 50 MCG TAB PO SCH (05:03)
[2020-12-04 06:03] LABS: ANION GAP 12.5 mmol/L (8-16); CALCIUM 7.9 mg/dL (8.4-10.2); CREATININE, SERUM 0.58 mg/dL (0.57-1.11); POTASSIUM 3.5 mmol/L (3.5-5.1)
[2020-12-04] MEDS: INSULIN REGULAR, HUMAN 100 UNIT/1 ML SQ SCH ×2 (07:30→11:30)
[2020-12-04 07:40] VITALS: BP 156/68
[2020-12-04 07:55] VITALS: BP 156/68
[2020-12-04] MEDS: METOPROLOL SUCCINATE 25 MG TAB XL PO SCH (08:37)
[2020-12-04] MEDS: LOSARTAN POTASSIUM 25 MG TAB PO SCH (08:37)
[2020-12-04] MEDS: ERTAPENEM 1 GM in SODIUM CHLORIDE 0.9% 100 ML IV SCH (09:47)
[2020-12-04 11:33] VITALS: BP 159/82
== END 2020-12-04 13:10 | disposition home or self-care (01) | DRG 330 ==
LOC: OR 07:33 → PACU V 14:02 → IMCU 15:15 → MED/SURG 11-29 20:24
PROVIDERS: ADMIT Surgery; ATTEND Surgery
PROC: 0UQG0ZZ Repair Vagina, Open Approach (ICD-10-PCS; 2020-11-27)
PROC: 0DNW0ZZ Release Peritoneum, Open Approach (ICD-10-PCS; 2020-11-27)
PROC: 0WPJ0JZ Removal of Synthetic Substitute from Pelvic Cavity, Open Approach (ICD-10-PCS; 2020-11-27)
PROC: 0DTN0ZZ Resection of Sigmoid Colon, Open Approach (ICD-10-PCS; principal; 2020-11-27 09:43)
DX: K57.32 Diverticulitis of large intestine without perforation or abscess without bleeding (principal); N32.1 Vesicointestinal fistula; K66.0 Peritoneal adhesions (postprocedural) (postinfection); E11.9 Type 2 diabetes mellitus without complications; E03.9 Hypothyroidism, unspecified; I10 Essential (primary) hypertension; E78.5 Hyperlipidemia, unspecified; Z20.822 Contact with and (suspected) exposure to COVID-19
CPT/HCPCS: 36415; 71046; 80048; 80053; 82948; 85025; 88300; 88305; 88307; 93005; 97139; J0360; J1170; J1335; J1817; J2405; J3010; J7030; J7050; U0002

== ENCOUNTER 2021-07-16 08:26 | Inpatient (IN) | payer MEDICARE, BC ==
[2021-07-13 09:57] LABS: BASOPHILS # (AUTO) 0.1 (0.0-0.1); BASOPHILS % 0.8 % (0.0-1.0); EOSINOPHILS # (AUTO) 0.2 (0.0-0.4); EOSINOPHILS % 2.5 % (0.0-6.0); HEMATOCRIT 37.2 % (34.2-44.1); HEMOGLOBIN 11.6 g/dL (12.0-16.0); LYMPHOCYTES # (AUTO) 2.5 (1.0-3.2); LYMPHOCYTES % 30.4 % (18.0-39.1); MEAN CORPUSCULAR HEMOGLOBIN 26.8 pg (28-32); MEAN CORPUSCULAR HGB CONC 31.2 g/dL (31-35); MEAN CORPUSCULAR VOLUME 85.9 fL (81-99); MONOCYTES # (AUTO) 0.8 (0.2-0.8); MONOCYTES % 9.8 % (4.4-11.3); NEUTROPHILS # (AUTO) 4.7 (2.1-6.9); NEUTROPHILS % 56.3 % (38.7-80.0); PLATELET COUNT 472 x10e3/uL (140-360); RED BLOOD COUNT 4.33 x10e6/uL (3.6-5.1); RED CELL DISTRIBUTION WIDTH 17.1 % (11.7-14.4)
[~2021-07-16] VITALS: Ht 157.5 cm; Wt 86.6 kg
[~2021-07-16 08:26] MED LIST changes: +VITAMIN C1000 MG PO; +VITAMIN D3 COM1 EACH PO; +ZINC SULFATE50 M1 PO
[2021-07-16] MEDS ORDERED: SODIUM CHLORIDE 0.9% 250ML 250 ML ONE (09:19)
[2021-07-16] MEDS ORDERED: Vancomycin IV 1 GM VIAL ONE (09:19)
[2021-07-16] MEDS ORDERED: BUPIVACAINE HC 0.75% PF 10ML VIAL INJ ONE (09:27)
[2021-07-16 09:46] LABS: ANION GAP 16.1 mmol/L (8-16); CALCIUM 8.9 mg/dL (8.4-10.2); CREATININE, SERUM 1.08 mg/dL (0.57-1.11); POTASSIUM 4.1 mmol/L (3.5-5.1)
[2021-07-16] MEDS ORDERED: SUGAMMADEX SODIUM 200 MG/2 ML VIAL IV ONE (10:13)
[2021-07-16] MEDS ORDERED: ACETAMINOPHEN 1000 MG/100 ML 100 ML IV ONE (10:14)
[2021-07-16] MEDS ORDERED: ONDANSETRON HCL INJ 2MG/ML 2ML 2 MG/ML VIAL IV PRN (11:45)
[2021-07-16] MEDS ORDERED: HYDROCODONE/APAP 7.5MG-325MG 1 EA TAB PO PRN (11:45)
[2021-07-16] MEDS ORDERED: HYDRALAZINE HCL 20 MG/ML VIAL ONE (11:46)
[2021-07-16] MEDS ORDERED: METOCLOPRAMIDE HCL 10 MG/2ML VIAL ONE (11:59)
[2021-07-16] MEDS ORDERED: PROMETHAZINE HCL (IM) 25 MG/ML VIAL IM ONE (12:02)
[2021-07-16] MEDS ORDERED: FENTANYL CITRATE/PF 100MCG/2 ML INJ ONE (12:14)
[2021-07-16] MEDS ORDERED: DEXAMETHASONE SOD PHOS INJ 4 MG/ML SDV ONE (13:31)
[2021-07-16] MEDS ORDERED: SEVOFLURANE INHAL SOLN 250 ML PEN BTL ONE (13:31)
[2021-07-16] MEDS ORDERED: POVIDONE IODINE 0.05% 0.05 % ML PO ONE (13:31)
[2021-07-16] MEDS ORDERED: ROCURONIUM BROMIDE 10 MG/ML 5ML VIAL IV ONE (13:31)
[2021-07-16] MEDS ORDERED: ONDANSETRON HCL INJ 2MG/ML 2ML 2 MG/ML VIAL ONE (13:31)
[2021-07-16] MEDS ORDERED: PROPOFOL IV EMULSION 10 MG/ML 20 ML VIAL ONE (13:31)
[2021-07-16 14:12] VITALS: BP 109/96
[2021-07-16 14:18] VITALS: BP 109/96
[2021-07-16] MEDS: SODIUM CHLORIDE 0.9% 1000ML 1,000 ML IV SCH ×2 (15:05→22:02)
[2021-07-16] MEDS: PROMETHAZINE 12.5MG/ NACL 0.9% 12.5 MG/50 ML BAG IV PRN ×2 (15:55→22:02)
[2021-07-16] MEDS ORDERED: PNEUMOCOCCAL VACCINE POLYVALENT 23 MCG/0.5 ML VIAL IM ONE (16:00)
[2021-07-16] MEDS ORDERED: DEXTROSE 50% SYRINGE 50 ML IV PRN (16:30)
[2021-07-16] MEDS: INSULIN LISPRO 100 UNIT/1 ML 3ML VIAL SQ SCH ×2 (16:30→21:00)
[2021-07-16] MEDS: HYDRALAZINE HCL 20 MG/ML VIAL IV PRN (17:05)
[2021-07-16 17:29] VITALS: BP 177/74
[2021-07-16 20:00] VITALS: BP 153/74
[2021-07-16] MEDS: Morphine 2mg Syringe 2 MG/ML SYR IV PRN ×2 (20:56→23:50)
[2021-07-16] MEDS: ENOXAPARIN SOD INJ 40 MG/0.4 ML SYR SC SCH (20:56)
[2021-07-16 21:00] VITALS: BP 153/74
[2021-07-17] VITALS: BP 154/84
[2021-07-17 04:00] VITALS: BP 181/82
[2021-07-17] MEDS: SODIUM CHLORIDE 0.9% 1000ML 1,000 ML IV SCH (05:29)
[2021-07-17] MEDS: HYDRALAZINE HCL 20 MG/ML VIAL IV PRN (05:30)
[2021-07-17] MEDS: PROMETHAZINE 12.5MG/ NACL 0.9% 12.5 MG/50 ML BAG IV PRN (05:30)
[2021-07-17] MEDS: Morphine 2mg Syringe 2 MG/ML SYR IV PRN (05:30)
[2021-07-17 05:55] LABS: BASOPHILS % 0.3 % (0.0-1.0); HEMOGLOBIN 12.5 g/dL (12.0-16.0); LYMPHOCYTES # (AUTO) 1.4 (1.0-3.2); LYMPHOCYTES % 14.3 % (18.0-39.1); MEAN CORPUSCULAR HEMOGLOBIN 26.8 pg (28-32); MEAN CORPUSCULAR HGB CONC 29.8 g/dL (31-35); MEAN CORPUSCULAR VOLUME 89.9 fL (81-99); MONOCYTES # (AUTO) 1.1 (0.2-0.8); MONOCYTES % 10.7 % (4.4-11.3); NEUTROPHILS # (AUTO) 7.4 (2.1-6.9); PLATELET COUNT 401 x10e3/uL (140-360); RED BLOOD COUNT 4.67 x10e6/uL (3.6-5.1); RED CELL DISTRIBUTION WIDTH 18.3 % (11.7-14.4)
[2021-07-17] MEDS ORDERED: LEVOTHYROXINE SODIUM 50 MCG TAB PO SCH (06:00)
[2021-07-17 06:25] LABS: CREATININE, SERUM 0.77 mg/dL (0.57-1.11); MAGNESIUM 1.9 MG/DL (1.3-2.1); PHOSPHORUS 2.6 MG/DL (2.3-4.7)
[2021-07-17] MEDS: INSULIN LISPRO 100 UNIT/1 ML 3ML VIAL SQ SCH ×2 (07:30→11:30)
[2021-07-17 08:11] VITALS: BP 153/62
[2021-07-17 08:55] VITALS: BP 153/62
[2021-07-17] MEDS ORDERED: PANTOPRAZOLE SOD 40 MG TABEC PO SCH (09:00)
[2021-07-17] MEDS: ENOXAPARIN SOD INJ 40 MG/0.4 ML SYR SC SCH (09:00)
[2021-07-17] MEDS ORDERED: METOPROLOL SUCCINATE 25 MG TAB XL PO SCH (09:00)
[2021-07-17] MEDS ORDERED: LOSARTAN POTASSIUM 25 MG TAB PO SCH (09:00)
[2021-07-17 12:05] VITALS: BP 161/81
[2021-07-17 12:53] LABS: ANISOCYTOSIS MODERATE; HYPOCHROMASIA SLIGHT; PLATELET ESTIMATE ADEQUATE; PLATELET MORPHOLOGY COMMENT NORMAL; RBC MORPHOLOGY COMMENT ABNORMAL
[2021-07-17] MEDS ORDERED: PROMETHAZINE HCL 25 MG TAB PO ONE (13:30)
== END 2021-07-17 14:47 | disposition home or self-care (01) | DRG 621 ==
LOC: OR 08:26 → PACU V 11:38 → MED/SURG2 14:16
PROVIDERS: ADMIT Internal Medicine; ATTEND Internal Medicine
PROC: 0DB64Z3 Excision of Stomach, Percutaneous Endoscopic Approach, Vertical (ICD-10-PCS; principal; 2021-07-16 09:59)
PROC: 0BQT4ZZ Repair Diaphragm, Percutaneous Endoscopic Approach (ICD-10-PCS; 2021-07-16 09:59)
DX: E66.01 Morbid (severe) obesity due to excess calories (principal); K44.9 Diaphragmatic hernia without obstruction or gangrene; I10 Essential (primary) hypertension; E11.9 Type 2 diabetes mellitus without complications; K21.9 Gastro-esophageal reflux disease without esophagitis; Z82.49 Family history of ischemic heart disease and other diseases of the circulatory system; Z88.1 Allergy status to other antibiotic agents; Z88.0 Allergy status to penicillin; E03.9 Hypothyroidism, unspecified; Z68.34 Body mass index [BMI] 34.0-34.9, adult; K66.0 Peritoneal adhesions (postprocedural) (postinfection)
CPT/HCPCS: 36415; 71046; 80048; 82948; 83735; 84100; 85025; 90732; C1713; J0360; J1100; J1650; J2270; J2405; J2550; J2765; J3010; J3370; J7030; J7050

== ENCOUNTER → 2022-05-23 | Day surgery (SDC) | payer MEDICARE, BC ==
[2022-05-15 13:12] LABS: BASOPHILS # (AUTO) 0.1 (0.0-0.1); BASOPHILS % 0.8 % (0.0-1.0); EOSINOPHILS # (AUTO) 0.2 (0.0-0.4); EOSINOPHILS % 2.7 % (0.0-6.0); HEMATOCRIT 40.5 % (34.2-44.1); HEMOGLOBIN 13.6 g/dL (12.0-16.0); LYMPHOCYTES # (AUTO) 2.9 (1.0-3.2); LYMPHOCYTES % 34.1 % (18.0-39.1); MEAN CORPUSCULAR HEMOGLOBIN 28.9 pg (28-32); MEAN CORPUSCULAR HGB CONC 33.6 g/dL (31-35); MONOCYTES # (AUTO) 0.8 (0.2-0.8); MONOCYTES % 8.9 % (4.4-11.3); NEUTROPHILS # (AUTO) 4.6 (2.1-6.9); NEUTROPHILS % 53.3 % (38.7-80.0); PLATELET COUNT 399 x10e3/uL (140-360); RED BLOOD COUNT 4.71 x10e6/uL (3.6-5.1); RED CELL DISTRIBUTION WIDTH 16.7 % (11.7-14.4)
[~2022-05-23] MED LIST changes: +BRAIN MIGHT-DH1 EACH PO; +BREO ELLIPTA 11 EACH INH; +CALCIUM 600 +1 EAC2 PO; +D3-5000125 MCG; +FENTANYL CITRATE/PF 100MCG/2 ML INJ ONE; +HYOSCYAMINE SULFATE 0.5 MG/ML INJ ONE; +JARDIANCE10 MG; +KETAMINE HCL INJ 50 MG/ML 10 ML VIAL ONE; +LACTATED RINGER'S 1,000 ML ONE; +LIDOCAINE HCL 2% LOCAL INJ 5 ML SDV VIAL INJ ONE; +METOCLOPRAMIDE HCL 10 MG/2ML VIAL ONE; +MULTI-VITAMIN1 EACH PO; +OZEMPIC0.25 MG/0. SC; +POVIDONE IODINE 0.05% 0.05 % ML PO ONE; +PROPOFOL IV EMULSION 10 MG/ML 20 ML VIAL ONE; +TRELEGY ELLIPT1 EACH INH
[2022-05-23 12:30] VITALS: BP 123/61
== END | disposition home or self-care (01) ==
LOC: OR 09:31
PROVIDERS: ATTEND Internal Medicine Gastroenterology
DX: K29.50 Unspecified chronic gastritis without bleeding (principal); D12.2 Benign neoplasm of ascending colon; D12.4 Benign neoplasm of descending colon; K57.92 Diverticulitis of intestine, part unspecified, without perforation or abscess without bleeding; K22.10 Ulcer of esophagus without bleeding; K44.9 Diaphragmatic hernia without obstruction or gangrene; Z98.0 Intestinal bypass and anastomosis status; K64.8 Other hemorrhoids; Z71.3 Dietary counseling and surveillance; R49.9 Unspecified voice and resonance disorder; I10 Essential (primary) hypertension; Z71.89 Other specified counseling; E78.00 Pure hypercholesterolemia, unspecified; R73.03 Prediabetes; Z01.810 Encounter for preprocedural cardiovascular examination; Z01.812 Encounter for preprocedural laboratory examination; Z79.899 Other long term (current) drug therapy; Z79.84 Long term (current) use of oral hypoglycemic drugs; Z68.30 Body mass index [BMI] 30.0-30.9, adult; Z80.0 Family history of malignant neoplasm of digestive organs
CPT/HCPCS: 36415 ×2; 43239; 45385; 82948; 85025; 88305; 88342; 93005; C9113; J1980; J2001; J2704; J2765; J3010; J7121; 45378; 45380; 88304; 88312